=== PATIENT | female | born 1955 | race Caucasian/White ===

== ENCOUNTER 2018-07-23 10:00 | Day surgery (SDC) | payer MEDICARE, OTHER ==
[~2018-07-23] VITALS: Ht 154.9 cm; Wt 68.0 kg
[~2018-07-23 10:00] MED LIST: CALCIUM 500 +1 EAC4 PO; LISINOPRIL-HCT1 EACH PO; NORCO 7.5-3251 EACH PO; VITAMIN B122500 MCG PO
--- NOTE | 2018-07-23 13:05 | NUR ---
07/23/18 1305 Basia Le 1257 PATIENT ARRIVES TO PACU AWAKE, ALERT AND ORIENTED X3. DENIES PAIN OR NAUSEA. RESP EVEN AND UNLABORED, ROOM AIR SATS >95%. PATIENT SITTING UP DRINKING WATER.
--- NOTE | 2018-07-24 13:47 | OR ---
[facility] [address] [place], [place] [address] Signed DATE OF OPERATION: 07/23/2018 SURGEON: Vincent Licea MD POSTOPERATIVE DIAGNOSIS: Left middle trigger finger. POSTOPERATIVE DIAGNOSIS: Left middle trigger finger. PROCEDURE PERFORMED: Left trigger finger release, middle. STAFFING CONSULTANT: None. ANESTHESIA: [place] block. TOURNIQUET TIME: 20 minutes. BRIEF HISTORY: Clayton is a 63-year-old female with painful locking in her finger. Risks and benefits of operative treatment were discussed with her and she elected to proceed. DESCRIPTION OF PROCEDURE: Once consent was obtained, she was taken to the operating room. After adequate anesthesia, she was placed on operating room table. All downside pressure points well padded. After establishment of the [place] block, the hand was prepped and draped in a standard sterile fashion. The skin was checked and that was complete anesthesia. A 1 cm incision was made in the distal palmar crease carried through the skin and subcutaneous tissue, directly down on the flexor tendon sheath. Blunt dissection was undertaken to remove the soft tissue off the A1 raina. This was then released under direct visualization using tenotomy scissors. The patient was asked to flex. She is able to fully flex and fully extend without any locking or triggering. The wound was copiously irrigated with antibiotic solution, closed with 3-0 nylon, and dressed with bacitracin, Adaptic, 4 x 8 gauze. She was awakened and taken to the recovery room in satisfactory condition. All sponge, needle, and instrument counts were correct. Electronically Signed By: VINCENT LICEA MD 07/24/18 1347 PATIENT NAME: CLAYTON CILFTON OPERATIVE REPORT DATE OF : 51 REPORT #: [id number] PHYSICIAN: VINCENT LICEA MD PCP: ALBINA CABRERA MD REPORT IS CONFIDENTIAL AND NOT TO BE RELEASED WITHOUT AUTHORIZATION [address] [place], [place] [address] Signed Vincent Licea MD BA/MODL /[id number] Copies: ~ Electronically Signed By: VINCENT LICEA MD 07/24/18 1347 PATIENT NAME: CLAYTON CLIFTON OPERATIVE REPORT DATE OF : 51 REPORT #: [id number] PHYSICIAN: VINCENT LICEA MD PCP: ALBINA CABRERA MD REPORT IS CONFIDENTIAL AND NOT TO BE RELEASED WITHOUT AUTHORIZATION
== END 2018-07-23 13:30 | disposition home or self-care (01) ==
LOC: DS 10:00 → OPS 10:00
PROVIDERS: Specialist
PROC: 0LN80ZZ Release Left Hand Tendon, Open Approach (ICD-10-PCS; principal; 2018-07-23 12:00)
DX: M65.332 Trigger finger, left middle finger (principal); Z88.8 Allergy status to other drugs, medicaments and biological substances; Z79.899 Other long term (current) drug therapy; Z79.01 Long term (current) use of anticoagulants; Z98.890 Other specified postprocedural states; Z87.891 Personal history of nicotine dependence
CPT/HCPCS: 01810; J0690; J2704; J3010; J7120

== ENCOUNTER 2019-12-05 07:50 | Day surgery (SDC) | payer MEDICARE, OTHER ==
[~2019-12-05] VITALS: Ht 154.9 cm; Wt 72.6 kg
[~2019-12-05 07:50] MED LIST changes: +DICLOFENAC SODI75 MG PO; +ESOMEPRAZOLE MA20 MG PO; +HYDROCHLOROTH12.5 M1 PO; +NEXIUM20 MG PO; +ZESTRIL10 MG PO
[2019-12-05] MEDS ORDERED: ASPIRIN EC325 MG PO (12:32)
[2019-12-05] MEDS ORDERED: OXYCODONE HCL5 MG PO (12:32)
[2019-12-05] MEDS ORDERED: GABAPENTIN300 MG PO (12:33)
--- NOTE | 2019-12-06 07:53 | OR ---
[facility] [address] [place] [address] Signed DATE OF OPERATION: 12/05/2019 SURGEON: Vincent Licea MD PREOPERATIVE DIAGNOSIS: Severe degenerative joint disease, left knee. POSTOPERATIVE DIAGNOSIS: Severe degenerative joint disease, left knee. PROCEDURE PERFORMED: Left total knee arthroplasty with Kentrell. WATER RESOURCE SPECIALIST: MARIANO Mendez. Estefany was present and critical for all portions of procedure. ANESTHESIA: Spinal. ESTIMATED BLOOD LOSS: 165 mL. TOURNIQUET TIME: Zero. IMPLANTS: Hampton Triathlon size #110 mm polyethylene and a #29 mm patella. BRIEF HISTORY: Clayton is a 64-year-old female with worsening of arthritis. She had undergone arthroscopy injections and bracing without substantial relief and wished to proceed with surgery. DESCRIPTION OF PROCEDURE: Once consent was obtained, she was taken to the operating room after adequate anesthesia. She was placed on operating room table, all downside pressure points were well padded. The left leg was prepped and draped in a standard sterile fashion. The knee was approached through standard anterior incision, carried through skin and subcutaneous tissue, and a subvastus approach was undertaken. The medial and lateral Electronically Signed By: VINCENT LICEA MD 12/06/19 0753 PATIENT NAME: CLAYTON CLIFTON OPERATIVE REPORT DATE OF : 51 REPORT #: [id number] PHYSICIAN: VINCENT LICEA MD PCP: ALBINA CABRERA MD REPORT IS CONFIDENTIAL AND NOT TO BE RELEASED WITHOUT AUTHORIZATION [facility] [address] [place], [place] [address] Signed menisci were transected as was the ACL. The MCL was elevated with a sleeve around the posteromedial corner. The infrapatellar fat pad was excised. The knee was then flexed and the computer rays for the Kentrell were then placed. The femoral was placed intra-articular. The tibial was placed on the anteromedial surface of the tibia. The leg was then registered with the computer including malleoli. Registration points were then taken on the femur and tibia. The Robot was brought in and the cuts were made with care taken to protect the surrounding soft tissues. The bone fragments were removed. The osteophytes were removed as we went. The trials were then positioned and taken through range of motion. She was a bit lax in extension, so we increased it to a 10 poly, which was quite nice. The patella was cut, sized and drilled for a 29 patella. The femoral drill holes were made and the proximal tibia was finished using the keel punch. Because of her soft bone, we did elect to go with a cemented tibia and patella and a noncemented femur. The bone was pulse lavaged and packed with dry Ray-Phyllis. The cement was mixed and it reached proper consistency, it was placed on the tibial surfaces, the patellar surfaces and the implants. Tibia was impacted into position first followed by the polyethylene. The femur was impacted into position after removing all excess cement on the tibial side. The knee was then extended and nicely loaded and the patella was clamped into position. The final examination showed an excellent knee with no mid flexion instability. Patella tracked quite nicely. The knee was flexed and the remaining overflow cement was removed. The final polyethylene was snapped into position. The knee was pulse lavaged at intervals throughout the procedure. A total of 3 L antibiotic irrigation was used. The On-Q pain pump was placed percutaneously into the adductor canal from the suprapatellar pouch. The arthrotomy was then closed using #2 Stratafix, subcutaneous tissue with #0 Stratafix, and the skin with a ZipLine. She was placed in a VALENTE wound VAC dressing and Jimmy wrap, taken to the recovery room in satisfactory condition. All sponge, needle, and instrument counts were correct. Vincent Licea MD BA/MODL /[id number] Copies: Electronically Signed By: VINCENT LICEA MD 12/06/19 0753 PATIENT NAME: CLAYTON CLIFTON OPERATIVE REPORT DATE OF : 51 REPORT #: [id number] PHYSICIAN: VINCENT LICEA MD PCP: ALBINA CABRERA MD REPORT IS CONFIDENTIAL AND NOT TO BE RELEASED WITHOUT AUTHORIZATION [facility] [address] [place] [id number] Signed ~ Electronically Signed By: VINCENT LICEA MD 12/06/19 0753 PATIENT NAME: CLAYTON CLIFTON OPERATIVE REPORT DATE OF : 51 REPORT #: [id number] PHYSICIAN: VINCENT LICEA MD PCP: ALBINA CABRERA MD REPORT IS CONFIDENTIAL AND NOT TO BE RELEASED WITHOUT AUTHORIZATION
== END 2019-12-05 18:05 | disposition home or self-care (01) ==
LOC: DS 07:50
PROVIDERS: Specialist
PROC: 0SRD0J9 Replacement of Left Knee Joint with Synthetic Substitute, Cemented, Open Approach (ICD-10-PCS; principal; 2019-12-05 10:00)
DX: M17.12 Unilateral primary osteoarthritis, left knee (principal); M25.762 Osteophyte, left knee; I10 Essential (primary) hypertension; F32.9 Major depressive disorder, single episode, unspecified; K21.9 Gastro-esophageal reflux disease without esophagitis; Z79.899 Other long term (current) drug therapy; Z87.891 Personal history of nicotine dependence
CPT/HCPCS: 01402; 64447; 64450; 76942; 97161; C1713; C1776; J0690; J0735; J1100; J1885; J2001; J2250; J2405; J2704; J2765; J2795; J3010; J7121

== ENCOUNTER 2024-09-12 10:24 | Day surgery (SDC) | payer MEDICARE, OTHER ==
[~2024-09-12] VITALS: Ht 154.9 cm; Wt 66.4 kg
[~2024-09-12 10:24] MED LIST changes: +ASPIRIN EC325 MG PO; +CEFAZOLIN SODIUM 2 GM/20 ML SYR IV SCH; +FOSAMAX70 MG PO; +GABAPENTIN300 MG PO; +HYDROCODON-ACE1 EA10 PO; +IBLOOD GLUCOSE TEST STRIP 1 EA TEST VI PRN; +LACTATED RINGER'S 1,000 ML IV SCH; +LIDOCAINE HCL 1% 5 ML SDV INJ ONE; +LISINOPRIL-HCT1 EAC2 PO; +OSTERA TABLET1 EACH PO; +OXYCODONE HCL5 MG PO; +TURMERIC500 M2 PO; +VITAMIN D210 MCG PO; +ZESTRIL5 MG PO
[2024-09-12 10:47] VITALS: BP 117/78
[2024-09-12] MEDS ORDERED: HYDROCODONE/ACETA 5/325 TAB PO PRN (11:45)
[2024-09-12] MEDS ORDERED: KETOROLAC TROMETHAMINE 30 MG/ML VIAL ONE (11:50)
[2024-09-12] MEDS ORDERED: DEXAMETHASONE SOD PHOS 4 MG/ML VIAL ONE (11:50)
[2024-09-12] MEDS ORDERED: propofoL 200 MG/20 ML VIAL ONE (11:50)
[2024-09-12] MEDS ORDERED: LIDOCAINE HCL 2% 5 ML SDV ONE (11:50)
[2024-09-12] MEDS ORDERED: MIDAZOLAM HCL 2 MG/2 ML VIAL ONE (11:53)
[2024-09-12] MEDS ORDERED: ePHEDrine sulfate 50 MG/ML AMP ONE (12:18)
[2024-09-12] MEDS ORDERED: HYDROCODON-ACE1 EA10 PO (12:27)
--- NOTE | 2024-09-12 12:49 | NUR ---
09/12/24 1249 Tamara Parry 1229-PT ARRIVES TO PACU VIA STRETCHER, PT RESPONSIVE TO STIMULI BUT RESTS W/ EYES CLOSED, VSS ON 6L VIA MASK, RR EVEN AND UNLABORED. RT HAND ELEVATED ON PILLOW AND ICE PACK APPLIED. 1240-PT AWAKENS EASILY TO VOICE, DENIES PAIN OR NAUSEA, TITRATED TO RA, VS REMAIN STABLE.
[2024-09-12 13:27] VITALS: BP 114/75
--- NOTE | 2024-09-13 16:27 | OR ---
[facility] [address] [place], [place] [address] Signed DATE OF OPERATION: 09/12/2024 SURGEON: Vincent Licea MD PREOPERATIVE DIAGNOSIS: Trigger fingers, right, ring and index. POSTOPERATIVE DIAGNOSIS: Trigger fingers, right, ring and index. PROCEDURE PERFORMED: Trigger finger release, right index and ring. POND SCALER: Estefany Horn PA-C. ANESTHESIA: [place] block. TOURNIQUET TIME: 18 minutes. BRIEF HISTORY: Clayton is a 69-year-old female with pain and locking in her fingers. She had multiple other trigger fingers that we released successfully. Risks and benefits of operative treatment were discussed with her and she elected to proceed. DESCRIPTION OF OPERATION: Once consent was obtained, she was taken to the operating room. After adequate anesthesia, she was placed on the operating room table. All downside pressure points were well padded. The arm was prepped and draped in a standard sterile fashion. The ring finger trigger was released through a 1 cm incision. Incision was carried down to the flexor tendon sheath. This was carefully dissected free of overlying soft tissue under loupe magnification and the A1 raina was transected. The finger was then moved with no locking or triggering. The 2nd incision was made overlying the flexor tendon sheath of the index finger. This was carried through the skin and subcutaneous tissue and sequentially released. Both fingers moved well with no locking or triggering. Both wounds were copiously irrigated with normal saline, closed with 3-0 nylon and injected with 5 mL of 0.25% plain Marcaine. They were dressed with bacitracin, Adaptic, 4 x 8s, and gauze. She tolerated the procedure well. All sponge, needle, and instrument counts Electronically Signed By: VINCENT LICEA MD 09/13/24 1627 PATIENT NAME: CLAYTON CLIFTON OPERATIVE REPORT DATE OF : 51 REPORT #: [id number] PHYSICIAN: VINCENT ILCEA MD PCP: CAM CAMARILLO MD REPORT IS CONFIDENTIAL AND NOT TO BE RELEASED WITHOUT AUTHORIZATION [address] [address] Signed were correct. Vincent Licea MD BA/VAISHALI /[id number] Copies: ~ Electronically Signed By: VINCENT LICEA MD 09/13/24 1627 PATIENT NAME: CLAYTON CLIFTON OPERATIVE REPORT DATE OF : 51 REPORT #: [id number] PHYSICIAN: VINCENT LICEA MD PCP: CAM CAMARILLO MD REPORT IS CONFIDENTIAL AND NOT TO BE RELEASED WITHOUT AUTHORIZATION
== END 2024-09-12 13:15 | disposition home or self-care (01) ==
LOC: DS 10:24
PROVIDERS: ATTEND Specialist
PROC: 0LN70ZZ Release Right Hand Tendon, Open Approach (ICD-10-PCS; 2024-09-12)
PROC: 0LN70ZZ Release Right Hand Tendon, Open Approach (ICD-10-PCS; principal; 2024-09-12 13:00)
DX: M65.341 Trigger finger, right ring finger (principal); M65.321 Trigger finger, right index finger; I10 Essential (primary) hypertension; K21.9 Gastro-esophageal reflux disease without esophagitis; M81.0 Age-related osteoporosis without current pathological fracture; Z79.83 Long term (current) use of bisphosphonates; Z79.899 Other long term (current) drug therapy; Z87.891 Personal history of nicotine dependence
CPT/HCPCS: 01810; J0690; J1100; J1885; J2003; J2250; J2704; J7121